=== PATIENT | female | born 1980 | race Caucasian/White ===

== ENCOUNTER 2016-02-16 05:32 | Day surgery (SDC) | payer BC, OTHER ==
[~2016-02-16] VITALS: Ht 170.2 cm; Wt 101.0 kg
[~2016-02-16 05:32] MED LIST: ADDERALL XR 2020 MG; CYMBALTA20 MG PO; FIORICET WI1 CAPSULE PO; MIRENA52 MG IY; PERCOCET 5/31 TABLET PO; PRENATAL TABLE1 EAC3 PO; PRENATAL1 EACH PO; REGLAN5 MG PO; TUMS500 MG PO; TYLENOL WITH C1 EACH PO; ZANTAC150 MG PO; ZOLOFT50 MG PO; [UNRECOGNIZED DRUG - OTHER] PO
[2016-02-16 06:03] VITALS: BP 114/71
[2016-02-16] MEDS ORDERED: NORCO 5/3251 TABLET PO (08:27)
[2016-02-16] MEDS ORDERED: MOTRIN800 MG PO (08:27)
[2016-02-16 09:18] VITALS: BP 135/71
[2016-02-16 10:12] VITALS: BP 134/80
== END 2016-02-16 09:51 | disposition home or self-care (01) ==
LOC: SDC 05:32
PROC: 0U574ZZ Destruction of Bilateral Fallopian Tubes, Percutaneous Endoscopic Approach (ICD-10-PCS; principal; 2016-02-16)
DX: Z30.2 Encounter for sterilization (principal); F98.8 Other specified behavioral and emotional disorders with onset usually occurring in childhood and adolescence; F12.10 Cannabis abuse, uncomplicated; E66.3 Overweight; Z68.35 Body mass index [BMI] 35.0-35.9, adult; G43.909 Migraine, unspecified, not intractable, without status migrainosus; F43.10 Post-traumatic stress disorder, unspecified; Z83.49 Family history of other endocrine, nutritional and metabolic diseases; Z82.49 Family history of ischemic heart disease and other diseases of the circulatory system; Z80.1 Family history of malignant neoplasm of trachea, bronchus and lung; Z80.3 Family history of malignant neoplasm of breast; Z87.891 Personal history of nicotine dependence; Z88.8 Allergy status to other drugs, medicaments and biological substances
CPT/HCPCS: J0131; J0330; J1100; J1885; J2175; J2405; J3010; S0020